=== PATIENT | female | born 1975 | race Caucasian/White ===

== ENCOUNTER 2021-09-05 23:19 | Emergency (ER) | payer SELFPAY ==
[~2021-09-05] VITALS: Ht 167.6 cm; Wt 65.8 kg
[2021-09-06] MEDS ORDERED: PERM60CR4 TP (00:02)
[2021-09-06 00:03] VITALS: BP 135/95
--- NOTE | 2021-09-06 00:15 | NUR ---
Patient discharged to home in stable condition. Written and verbal after care instructions given. Patient verbalizes understanding of instruction.
== END 2021-09-06 05:17 | disposition home or self-care (01) ==
LOC: ER 23:24
DX: T14.8XXA Other injury of unspecified body region, initial encounter (principal); Z59.00 Homelessness unspecified; W57.XXXA Bitten or stung by nonvenomous insect and other nonvenomous arthropods, initial encounter; Y93.89 Activity, other specified; Y92.89 Other specified places as the place of occurrence of the external cause; Y99.8 Other external cause status